=== PATIENT | male | born 1975 | race Two or more races ===

== ENCOUNTER 2018-01-31 09:19 | Emergency (ER) | payer MEDICAID ==
[~2018-01-31] VITALS: Ht 172.7 cm; Wt 68.0 kg
[2018-01-31 09:29] VITALS: BP 156/111
[2018-01-31] MEDS: KETOROLAC TROMETH 60MG/2ML VIAL IM ONE (10:52)
[2018-01-31] MEDS: diphenhdrAMINE HCL 25 MG CAP PO ONE (10:53)
[2018-01-31] MEDS: ONDANSETRON ODT 4 MG TAB PO ONE (10:53)
== END 2018-01-31 11:00 | disposition home or self-care (01) ==
LOC: ER 09:21
DX: R51 Headache (principal); F12.10 Cannabis abuse, uncomplicated
CPT/HCPCS: 96372; 99283; J1885; Q0162

== ENCOUNTER 2018-09-27 17:49 | Emergency (ER) | payer MEDICAID ==
[~2018-09-27] VITALS: Ht 172.7 cm; Wt 63.5 kg
[2018-09-27 17:54] VITALS: BP 144/116
[2018-09-27 18:20] LABS: Basophils # (auto) 0 uL; Basophils % (auto) 0.8 % (0.0-2.0); Eosinophils # (auto) 0.2 uL; Eosinophils % (auto) 3.7 % (0.0-7.0); Hematocrit 47.3 % (41.0-53.0); Hemoglobin 15.6 g/dL (13.5-17.5); Lymphocytes # (auto) 1.5 uL; Mean Corpuscular Hemoglobin 27.5 pg (28.0-32.0); Mean Corpuscular Volume 83.3 fL (80.0-100.0); Monocytes # (auto) 0.6 uL; Neutrophils % (auto) 62.5 % (37.0-80.0); Nucleated Red Blood Cells % 0.1 %; Platelet Count (auto) 319 10^3/uL (140-450); Red Blood Cells 5.68 10^6/uL (4.5-5.90); Red Cell Distribution Width 14.9 % (11.8-14.3); White Blood Cell 6.4 10^3/uL (4.4-10.8)
[2018-09-27 18:42] LABS: Albumin 3.6 g/dL (3.4-5.0); Anion Gap 6 (5-15); Blood Urea Nitrogen 20 mg/dL (7-18); Calcium 8.3 mg/dL (8.5-10.1); Carbon Dioxide 27 mmol/L (21-32); Chloride 106 mmol/L (98-107); Glucose 96 mg/dL (74-106); Sodium 139 mmol/L (136-145)
[2018-09-27 18:44] LABS: Alanine Aminotransferase 29 U/L (16-61); Alkaline Phosphatase 81 U/L (45-117); Aspartate Aminotransferase 28 U/L (15-37); BUN/Creatinine Ratio 16.3; Bilirubin, Total 0.4 mg/dL (0.2-1.0); GFR African American 82 mL/min; GFR Non-African American 68 mL/min; Total Protein 7.7 g/dL (6.4-8.2)
== END 2018-09-27 20:53 | disposition left against medical advice (07) ==
LOC: ER 17:54
DX: R07.89 Other chest pain (principal); Z88.5 Allergy status to narcotic agent; Z88.0 Allergy status to penicillin
CPT/HCPCS: 36415; 71046; 80053; 84484; 85025; 93005

== ENCOUNTER 2020-02-24 08:26 | Emergency (ER) | payer MEDICAID ==
[~2020-02-24] VITALS: Ht 175.3 cm; Wt 68.0 kg
[2020-02-24] MEDS ORDERED: cloNIDine HCL 0.1 MG TAB ONE (09:10)
[2020-02-24] MEDS ORDERED: cloNIDine HCL 0.1 MG TAB PO ONE (09:15)
[2020-02-24 10:31] VITALS: BP 144/101
== END 2020-02-24 12:21 | disposition home or self-care (01) ==
LOC: ER 08:26
DX: B34.9 Viral infection, unspecified (principal); J06.9 Acute upper respiratory infection, unspecified; I10 Essential (primary) hypertension; F17.210 Nicotine dependence, cigarettes, uncomplicated; F12.10 Cannabis abuse, uncomplicated; F15.10 Other stimulant abuse, uncomplicated; Z20.828 Contact with and (suspected) exposure to other viral communicable diseases
CPT/HCPCS: 36415; 71045; 87426

== ENCOUNTER 2020-12-08 11:55 | Emergency (ER) | payer MEDICAID ==
[~2020-12-08] VITALS: Ht 175.3 cm; Wt 72.6 kg
[2020-12-08 12:09] VITALS: BP 155/116
[2020-12-08 13:38] LABS: Basophils # (auto) 0.1 10 ^3/uL (0-0.2); Basophils % (auto) 0.9 % (0.0-2.0); Eosinophils # (auto) 0.4 10 ^3/uL (0-0.8); Eosinophils % (auto) 5.5 % (0.0-7.0); Hematocrit 43.5 % (41.0-53.0); Hemoglobin 14.7 g/dL (13.5-17.5); Lymphocytes # (auto) 2.5 10 ^3/uL (0.4-5.4); Lymphocytes % (auto) 33.4 % (10.0-50.0); Mean Corpuscular Hemoglobin 28.1 pg (28.0-32.0); Mean Corpuscular Hgb Conc. 33.9 g/dL (32.0-36.0); Mean Corpuscular Volume 82.8 fL (80.0-100.0); Monocytes # (auto) 0.5 10 ^3/uL (0-1.3); Monocytes % (auto) 6.2 % (0.0-12.0); Neutrophils # (auto) 4.1 10 ^3/uL (1.6-8.6); Red Blood Cells 5.25 10^6/uL (4.5-5.90); Red Cell Distribution Width 14.9 % (11.8-14.3); White Blood Cell 7.5 10^3/uL (4.4-10.8)
[2020-12-08 13:57] LABS: Albumin 3.9 g/dL (3.4-5.0); Anion Gap 3 (5-15); Blood Urea Nitrogen 13 mg/dL (7-18); Calcium 9.2 mg/dL (8.5-10.1); Carbon Dioxide 26 mmol/L (21-32); Chloride 107 mmol/L (98-107); Glucose 88 mg/dL (74-106); Sodium 136 mmol/L (136-145)
[2020-12-08 14:05] LABS: Alanine Aminotransferase 33 U/L (16-61); Alkaline Phosphatase 88 U/L (45-117); Aspartate Aminotransferase 21 U/L (15-37); BUN/Creatinine Ratio 12.7; Bilirubin, Total 0.5 mg/dL (0.2-1.0); GFR African American 101 mL/min; GFR Non-African American 84 mL/min; Total Protein 8.5 g/dL (6.4-8.2)
== END 2020-12-08 23:55 | disposition left against medical advice (07) ==
LOC: ER 11:55 → EDBD 11:55 → ER 16:23
DX: R07.89 Other chest pain (principal); F15.10 Other stimulant abuse, uncomplicated; F12.10 Cannabis abuse, uncomplicated; F17.210 Nicotine dependence, cigarettes, uncomplicated; Z88.0 Allergy status to penicillin; Z88.5 Allergy status to narcotic agent
CPT/HCPCS: 36415; 71046; 80053; 84484; 85025; 93005

== ENCOUNTER 2022-06-15 16:27 | Emergency (ER) | payer MEDICAID ==
[~2022-06-15] VITALS: Ht 175.3 cm; Wt 70.0 kg
[2022-06-15 16:32] VITALS: BP 162/122
[2022-06-15 18:26] LABS: Calcium 9.6 mg/dL (8.5-10.1); Magnesium 2.4 mg/dL (1.6-2.6); Potassium 4.2 mmol/L (3.5-5.1)
[2022-06-15 18:27] LABS: BUN/Creatinine Ratio 12.4
[2022-06-15 18:30] LABS: Bilirubin, Total 0.6 mg/dL (0.2-1.0); Total Protein 8.1 g/dL (6.4-8.2)
[2022-06-15 18:47] LABS: Urine Bacteria FEW /hpf (None Seen); Urine Blood Negative /uL (Negative); Urine Hyaline Cast FEW /lpf (0 - 2); Urine Mucus FEW (None Seen); Urine Specific Gravity 1.028 (1.001-1.035); Urine WBC 1 /hpf (0 - 3)
[2022-06-15 18:52] LABS: Basophils # (auto) 0 10 ^3/uL (0-0.2); Basophils % (auto) 0.3 % (0.0-2.0); Eosinophils # (auto) 0.2 10 ^3/uL (0-0.8); Eosinophils % (auto) 1.5 % (0.0-7.0); Hematocrit 46.1 % (41.0-53.0); Hemoglobin 15.4 g/dL (13.5-17.5); Lymphocytes # (auto) 2.3 10 ^3/uL (0.4-5.4); Lymphocytes % (auto) 19.9 % (10.0-50.0); Mean Corpuscular Hemoglobin 27.4 pg (28.0-32.0); Mean Corpuscular Hgb Conc. 33.4 g/dL (32.0-36.0); Mean Corpuscular Volume 82.2 fL (80.0-100.0); Monocytes # (auto) 0.7 10 ^3/uL (0-1.3); Monocytes % (auto) 6.4 % (0.0-12.0); Neutrophils # (auto) 8.1 10 ^3/uL (1.6-8.6); Neutrophils % (auto) 71.9 % (37.0-80.0); Nucleated Red Blood Cells % 0.1 %; Red Cell Distribution Width 14.5 % (11.8-14.3); White Blood Cell 11.3 10^3/uL (4.4-10.8)
[2022-06-15] MEDS ORDERED: AUG875T PO (19:21)
[2022-06-15] MEDS ORDERED: HYDROcodone-ACET 5/325MG TAB PO ONE (19:30)
== END 2022-06-15 19:51 | disposition home or self-care (01) ==
LOC: ER 16:27
DX: K04.7 Periapical abscess without sinus (principal); R07.89 Other chest pain; I10 Essential (primary) hypertension; F12.10 Cannabis abuse, uncomplicated; F15.10 Other stimulant abuse, uncomplicated; F17.210 Nicotine dependence, cigarettes, uncomplicated; Z79.899 Other long term (current) drug therapy; Z88.0 Allergy status to penicillin; Z88.6 Allergy status to analgesic agent
CPT/HCPCS: 36415; 71275; 80053; 81001; 83735; 83880; 84484; 85025; 93005

== ENCOUNTER 2023-03-02 13:50 | Emergency (ER) | payer MEDICAID ==
[~2023-03-02] VITALS: Ht 175.3 cm; Wt 65.9 kg
[~2023-03-02 13:50] MED LIST: AUG875T PO
[2023-03-02] MEDS ORDERED: levETIRAcetam 1000 mg/100ml 100 ML IV ONE (14:15)
[2023-03-02 14:20] LABS: Basophils # (auto) 0 10 ^3/uL (0-0.2); Basophils % (auto) 0.7 % (0.0-2.0); Eosinophils # (auto) 0.3 10 ^3/uL (0-0.8); Eosinophils % (auto) 4.8 % (0.0-7.0); Hematocrit 42.8 % (41.0-53.0); Hemoglobin 14.1 g/dL (13.5-17.5); Lymphocytes # (auto) 0.4 10 ^3/uL (0.4-5.4); Lymphocytes % (auto) 6.8 % (10.0-50.0); Mean Corpuscular Hemoglobin 27.4 pg (28.0-32.0); Monocytes # (auto) 0.4 10 ^3/uL (0-1.3); Monocytes % (auto) 6.2 % (0.0-12.0); Neutrophils # (auto) 5.1 10 ^3/uL (1.6-8.6); Neutrophils % (auto) 81.5 % (37.0-80.0); Nucleated Red Blood Cells % 0.1 %; Red Blood Cells 5.16 10^6/uL (4.5-5.90); White Blood Cell 6.3 10^3/uL (4.4-10.8)
[2023-03-02 14:41] LABS: Alanine Aminotransferase 32 U/L (7-40); Albumin 4.7 g/dL (3.2-4.8); Alkaline Phosphatase 92 U/L (46-116); Anion Gap 6 (5-15); Aspartate Aminotransferase 28 U/L (13-40); BUN/Creatinine Ratio 11.2 (10.0-20.0); Bilirubin, Total 0.6 mg/dL (0.2-1.0); Blood Urea Nitrogen 13 mg/dL (9-23); Calcium 9.6 mg/dL (8.7-10.4); Carbon Dioxide 27 mmol/L (20-30); Chloride 103 mmol/L (98-107); Glucose 93 mg/dL (74-106); Magnesium 1.8 mg/dL (1.6-2.6); Potassium 4.3 mmol/L (3.5-5.1); Sodium 136 mmol/L (136-145); Total Protein 7.8 g/dL (5.7-8.2)
[2023-03-02 14:49] VITALS: BP 132/87; RESP 16; TEMP 98.1; O2SAT 95
[2023-03-02 14:55] VITALS: PULSE 88
[2023-03-02] MEDS ORDERED: HYDROcodone-ACET 5/325MG TAB PO ONE (15:00)
[2023-03-02] MEDS ORDERED: SODIUM CHLORIDE 0.9% 1,000 ML IV ONE (15:15)
== END 2023-03-02 17:27 | disposition left against medical advice (07) ==
LOC: ER 13:50
DX: R07.89 Other chest pain (principal); G40.909 Epilepsy, unspecified, not intractable, without status epilepticus; R51.9 Headache, unspecified; I10 Essential (primary) hypertension; F17.210 Nicotine dependence, cigarettes, uncomplicated; Z79.2 Long term (current) use of antibiotics; Z88.0 Allergy status to penicillin; Z88.5 Allergy status to narcotic agent
CPT/HCPCS: 36415; 70450; 71045; 80053; 83605; 83735; 84484; 85025; 87040; 93005; 96374; 99285; J1953

== ENCOUNTER 2023-03-04 14:50 | Emergency (ER) | payer MEDICAID ==
[~2023-03-04] VITALS: Ht 175.3 cm; Wt 65.9 kg
[2023-03-04 14:54] VITALS: BP 132/94; RESP 18; O2SAT 100
[2023-03-04 14:56] VITALS: PULSE 87
[2023-03-04 15:27] LABS: Basophils # (auto) 0 10 ^3/uL (0-0.2); Basophils % (auto) 0.4 % (0.0-2.0); Eosinophils # (auto) 0 10 ^3/uL (0-0.8); Hematocrit 45.5 % (41.0-53.0); Hemoglobin 14.8 g/dL (13.5-17.5); Lymphocytes # (auto) 0.9 10 ^3/uL (0.4-5.4); Lymphocytes % (auto) 28.3 % (10.0-50.0); Mean Corpuscular Hemoglobin 27.1 pg (28.0-32.0); Mean Corpuscular Hgb Conc. 32.7 g/dL (32.0-36.0); Mean Corpuscular Volume 82.9 fL (80.0-100.0); Monocytes # (auto) 0.4 10 ^3/uL (0-1.3); Monocytes % (auto) 10.6 % (0.0-12.0); Neutrophils % (auto) 60.7 % (37.0-80.0); Nucleated Red Blood Cells % 0.1 %; Red Blood Cells 5.48 10^6/uL (4.5-5.90); Red Cell Distribution Width 14.4 % (11.8-14.3); White Blood Cell 3.3 10^3/uL (4.4-10.8)
[2023-03-04 15:45] LABS: Alanine Aminotransferase 27 U/L (7-40); Albumin 4.6 g/dL (3.2-4.8); Alkaline Phosphatase 90 U/L (46-116); Anion Gap 11 (5-15); Aspartate Aminotransferase 45 U/L (13-40); Blood Urea Nitrogen 14 mg/dL (9-23); Carbon Dioxide 25 mmol/L (20-30); Chloride 95 mmol/L (98-107); Glucose 101 mg/dL (74-106); Potassium 3.6 mmol/L (3.5-5.1)
[2023-03-04] MEDS ORDERED: ONDANSETRON ODT 4 MG TAB PO ONE (15:45)
[2023-03-04] MEDS ORDERED: KETOROLAC TROMETH 60MG/2ML VIAL IM ONE (15:45)
[2023-03-04 15:46] LABS: Bilirubin, Total 0.4 mg/dL (0.2-1.0); Total Protein 7.8 g/dL (5.7-8.2)
[2023-03-04 15:49] LABS: Sodium 131 mmol/L (136-145)
[2023-03-04 17:44] LABS: Urine Bacteria NONE SEEN /hpf (None Seen); Urine Blood Negative /uL (Negative); Urine Clarity Clear (Clear); Urine Color Colorless (Yellow); Urine Protein, UAD Negative (Negative); Urine Specific Gravity 1.012 (1.001-1.035); Urine Urobilinogen Normal (Negative); Urine WBC <1 /hpf (0 - 3); Urine pH 5.5 (5.0-8.0)
[2023-03-04] MEDS ORDERED: ACET500T58 PO (19:11)
[2023-03-04] MEDS ORDERED: IBUP-1455 PO (19:11)
== END 2023-03-04 20:54 | disposition home or self-care (01) ==
LOC: ER 14:50
DX: R07.89 Other chest pain (principal); R51.9 Headache, unspecified; I10 Essential (primary) hypertension; F17.210 Nicotine dependence, cigarettes, uncomplicated; Z79.2 Long term (current) use of antibiotics; Z88.0 Allergy status to penicillin; Z88.5 Allergy status to narcotic agent
CPT/HCPCS: 36415; 70450; 71046; 80053; 80320; 81001; 84484; 85025; 93005

== ENCOUNTER 2023-11-14 15:07 | Emergency (ER) | payer MEDICAID ==
[~2023-11-14] VITALS: Ht 175.3 cm; Wt 63.6 kg
[~2023-11-14 15:07] MED LIST changes: +ACET500T58 PO; +IBUP-1455 PO
[2023-11-14 16:02] LABS: Basophils # (auto) 0.1 10 ^3/uL (0-0.2); Basophils % (auto) 0.7 % (0.0-2.0); Eosinophils # (auto) 0.4 10 ^3/uL (0-0.8); Eosinophils % (auto) 4.6 % (0.0-7.0); Hematocrit 42.6 % (41.0-53.0); Hemoglobin 14.1 g/dL (13.5-17.5); Lymphocytes # (auto) 2.5 10 ^3/uL (0.4-5.4); Lymphocytes % (auto) 30.6 % (10.0-50.0); Mean Corpuscular Hemoglobin 27.3 pg (28.0-32.0); Mean Corpuscular Hgb Conc. 33.2 g/dL (32.0-36.0); Mean Corpuscular Volume 82.2 fL (80.0-100.0); Monocytes # (auto) 0.6 10 ^3/uL (0-1.3); Monocytes % (auto) 7.4 % (0.0-12.0); Neutrophils # (auto) 4.6 10 ^3/uL (1.6-8.6); Neutrophils % (auto) 56.7 % (37.0-80.0); Nucleated Red Blood Cells % 0.1 %; Red Blood Cells 5.18 10^6/uL (4.5-5.90); Red Cell Distribution Width 15.1 % (11.8-14.3); White Blood Cell 8.1 10^3/uL (4.4-10.8)
[2023-11-14] MEDS: ACETAMINOPHEN 500 MG TAB PO ONE (16:15)
[2023-11-14 16:28] LABS: Alanine Aminotransferase 16 U/L (7-40); Albumin 4.6 g/dL (3.2-4.8); Alkaline Phosphatase 87 U/L (46-116); Anion Gap 6 (5-15); Aspartate Aminotransferase 14 U/L (13-40); BUN/Creatinine Ratio 14.2 (10.0-20.0); Blood Urea Nitrogen 17 mg/dL (9-23); Calcium 10.2 mg/dL (8.7-10.4); Carbon Dioxide 27 mmol/L (20-30); Chloride 106 mmol/L (98-107); Glucose 98 mg/dL (74-106); Magnesium 2.1 mg/dL (1.6-2.6); Potassium 4.1 mmol/L (3.5-5.1); Sodium 139 mmol/L (136-145)
[2023-11-14 16:29] LABS: Bilirubin, Total 0.5 mg/dL (0.2-1.0); Partial Thromboplastin Time 28.6 SEC (24.5-34.5); Prothrombin Time 10.6 sec (9.3-11.8); Total Protein 7.3 g/dL (5.7-8.2)
[2023-11-14] MEDS ORDERED: LEVE500T40 PO (18:33)
[2023-11-14] MEDS ORDERED: IBUP1TAB5 PO (18:33)
[2023-11-14] MEDS ORDERED: LISI-275 PO (18:33)
[2023-11-14 19:20] VITALS: BP 148/114; TEMP 98
[2023-11-14 19:26] VITALS: PULSE 85; RESP 16; O2SAT 98
[2023-11-14] MEDS: KETOROLAC TROMETH 30 MG/ML 1ML VIAL IM ONE (19:30)
== END 2023-11-14 19:43 | disposition home or self-care (01) ==
LOC: ER 15:12
DX: I16.0 Hypertensive urgency (principal); R07.89 Other chest pain; R51.9 Headache, unspecified; F17.210 Nicotine dependence, cigarettes, uncomplicated; F12.10 Cannabis abuse, uncomplicated; F15.10 Other stimulant abuse, uncomplicated; Z88.0 Allergy status to penicillin; Z88.5 Allergy status to narcotic agent
CPT/HCPCS: 36415; 70450; 71045; 80053; 83735; 83880; 84484; 85025; 85610; 85730; 93005

== ENCOUNTER 2023-12-12 18:14 | Emergency (ER) | payer MEDICAID ==
[~2023-12-12] VITALS: Ht 175.3 cm; Wt 72.7 kg
[~2023-12-12 18:14] MED LIST changes: +IBUP1TAB5 PO; +LEVE500T40 PO; +LISI-275 PO
[2023-12-12 18:59] LABS: Basophils # (auto) 0.1 10 ^3/uL (0-0.2); Basophils % (auto) 0.9 % (0.0-2.0); Eosinophils # (auto) 0.5 10 ^3/uL (0-0.8); Eosinophils % (auto) 6.6 % (0.0-7.0); Hematocrit 40.2 % (41.0-53.0); Hemoglobin 13.2 g/dL (13.5-17.5); Lymphocytes # (auto) 3.4 10 ^3/uL (0.4-5.4); Lymphocytes % (auto) 44.6 % (10.0-50.0); Mean Corpuscular Hemoglobin 27.2 pg (28.0-32.0); Mean Corpuscular Hgb Conc. 32.8 g/dL (32.0-36.0); Mean Corpuscular Volume 82.9 fL (80.0-100.0); Monocytes # (auto) 0.5 10 ^3/uL (0-1.3); Monocytes % (auto) 6.9 % (0.0-12.0); Neutrophils # (auto) 3.1 10 ^3/uL (1.6-8.6); Red Blood Cells 4.85 10^6/uL (4.5-5.90); Red Cell Distribution Width 14.6 % (11.8-14.3); White Blood Cell 7.6 10^3/uL (4.4-10.8)
[2023-12-12 19:15] LABS: Chloride 108 mmol/L (98-107); Potassium 3.6 mmol/L (3.5-5.1); Sodium 140 mmol/L (136-145)
[2023-12-12 19:16] LABS: Anion Gap 5 (5-15); Calcium 9.1 mg/dL (8.7-10.4); Carbon Dioxide 27 mmol/L (20-30)
[2023-12-12 19:21] LABS: BUN/Creatinine Ratio 12.6 (10.0-20.0); Blood Urea Nitrogen 13 mg/dL (9-23); Glucose 83 mg/dL (74-106)
[2023-12-12 19:22] LABS: Blood Alcohol 3.1 mg/dL (<10)
[2023-12-12 19:47] VITALS: TEMP 99.6
[2023-12-12] MEDS: ACETAMINOPHEN 325 MG TAB PO ONE (19:47)
[2023-12-12] MEDS: levETIRAcetam 1000 mg/100ml 100 ML IV ONE (19:47)
[2023-12-12 21:15] VITALS: BP 136/99; PULSE 75; RESP 16; O2SAT 99
== END 2023-12-12 21:18 | disposition home or self-care (01) ==
LOC: EDBD 18:14 → ER 18:14
DX: G40.909 Epilepsy, unspecified, not intractable, without status epilepticus (principal); I10 Essential (primary) hypertension; F17.210 Nicotine dependence, cigarettes, uncomplicated; F12.10 Cannabis abuse, uncomplicated; F15.10 Other stimulant abuse, uncomplicated; Z88.0 Allergy status to penicillin; Z88.6 Allergy status to analgesic agent
CPT/HCPCS: 36415; 70450; 80048; 80320; 85025; 93005; 96365; 99285; J1953

== ENCOUNTER 2024-02-06 13:29 | Inpatient (IN) | payer MEDICAID ==
[~2024-02-06] VITALS: Ht 175.3 cm; Wt 65.0 kg
[2024-02-06 14:33] LABS: Basophils # (auto) 0.1 10 ^3/uL (0-0.2); Basophils % (auto) 0.7 % (0.0-2.0); Eosinophils # (auto) 0.2 10 ^3/uL (0-0.8); Eosinophils % (auto) 2.5 % (0.0-7.0); Hematocrit 42.5 % (41.0-53.0); Hemoglobin 14.1 g/dL (13.5-17.5); Lymphocytes # (auto) 2.9 10 ^3/uL (0.4-5.4); Lymphocytes % (auto) 33.5 % (10.0-50.0); Mean Corpuscular Hemoglobin 27.8 pg (28.0-32.0); Mean Corpuscular Hgb Conc. 33.1 g/dL (32.0-36.0); Mean Corpuscular Volume 84.1 fL (80.0-100.0); Monocytes # (auto) 0.5 10 ^3/uL (0-1.3); Monocytes % (auto) 5.7 % (0.0-12.0); Neutrophils # (auto) 5.1 10 ^3/uL (1.6-8.6); Neutrophils % (auto) 57.6 % (37.0-80.0); Platelet Count (auto) 408 10^3/uL (140-450); Red Blood Cells 5.06 10^6/uL (4.5-5.90); Red Cell Distribution Width 15.2 % (11.8-14.3); White Blood Cell 8.8 10^3/uL (4.4-10.8)
[2024-02-06 14:53] LABS: Alanine Aminotransferase 21 U/L (7-40); Albumin 4.4 g/dL (3.2-4.8); Alkaline Phosphatase 86 U/L (46-116); Anion Gap 9 (5-15); Aspartate Aminotransferase 17 U/L (13-40); BUN/Creatinine Ratio 11.2 (10.0-20.0); Blood Urea Nitrogen 13 mg/dL (9-23); Calcium 9.7 mg/dL (8.7-10.4); Carbon Dioxide 26 mmol/L (20-31); Chloride 107 mmol/L (98-107); Glucose 94 mg/dL (74-106); Lipase 38 U/L (12-53); Potassium 4.3 mmol/L (3.5-5.1); Sodium 142 mmol/L (136-145)
[2024-02-06 14:54] LABS: Bilirubin, Total 0.3 mg/dL (0.2-1.0); Total Protein 7.2 g/dL (5.7-8.2)
[2024-02-06 15:55] VITALS: PULSE 78; RESP 18; O2SAT 98
[2024-02-06] MEDS: PANTOPRAZOLE 40 MG/10 ML VIAL INJ IV ONE (16:18)
[2024-02-06] MEDS: ONDANSETRON HCL 4 MG/2 ML VIAL IV ONE (16:19)
[2024-02-06] MEDS: hydrALAZINE HCL 20 MG/ML VL IV ONE (16:19)
[2024-02-06 17:11] VITALS: TEMP 98.4
[2024-02-06] MEDS ORDERED: ONDANSETRON HCL 4 MG/2 ML VIAL IV PRN (17:15)
[2024-02-06] MEDS ORDERED: HYDROmorphone HCL 2 MG/ML VL/or syr IV PRN (17:15)
[2024-02-06] MEDS: SODIUM CHLORIDE 0.9% 1,000 ML IV SCH (17:41)
[2024-02-06 17:55] VITALS: BP 155/109; PULSE 81; RESP 16; O2SAT 100
[2024-02-06] MEDS ORDERED: hydrALAZINE HCL 20 MG/ML VL IV PRN (18:45)
[2024-02-06] MEDS: LISINOPRIL 5 MG TAB PO SCH (19:16)
[2024-02-06] MEDS: cefTRIAXone 1GM/50ML D5W 50 ML IV SCH (19:16)
[2024-02-06] MEDS: levETIRAcetam 500 MG TAB PO ONE (19:20)
[2024-02-06 19:55] LABS: Urine Bacteria None Seen /hpf (None Seen)
[2024-02-06 20:07] LABS: Urine Blood Negative /uL (Negative); Urine Clarity Clear (Clear); Urine Color Light-Yellow (Yellow); Urine Protein, UAD Negative (Negative); Urine Specific Gravity 1.015 (1.001-1.035); Urine Urobilinogen Normal (Negative); Urine WBC <1 /hpf (0 - 3)
[2024-02-06] MEDS ORDERED: levETIRAcetam 500 MG TAB PO SCH (22:00)
[2024-02-06] MEDS: metroNIDAZOLE 500MG/100ML 100 ML IV SCH (22:00)
[2024-02-06] MEDS: SUCRALFATE 1 GM/10 ML ORAL SUSP GT SCH (22:00)
[2024-02-07] MEDS ORDERED: levETIRAcetam 500 MG TAB PO SCH (10:00)
[2024-02-07] MEDS ORDERED: LISINOPRIL 5 MG TAB PO SCH (10:00)
[2024-02-07] MEDS ORDERED: PANTOPRAZOLE 40 MG/10 ML VIAL INJ IV SCH (10:00)
== END 2024-02-06 23:02 | disposition left against medical advice (07) | DRG 254 ==
LOC: ER 13:29 → OVERFLOW 17:10
PROVIDERS: ADMIT Registered Nurse General Practice; ATTEND Registered Nurse General Practice
DX: K37 Unspecified appendicitis (principal); F17.210 Nicotine dependence, cigarettes, uncomplicated; F32.A Depression, unspecified; K52.9 Noninfective gastroenteritis and colitis, unspecified; I10 Essential (primary) hypertension; F41.9 Anxiety disorder, unspecified; Z53.29 Procedure and treatment not carried out because of patient's decision for other reasons; Z88.5 Allergy status to narcotic agent; Z88.0 Allergy status to penicillin
CPT/HCPCS: 36415; 71250; 74176; 76705; 80053; 81001; 83690; 85025; G0378; J2405; J2470

== ENCOUNTER 2024-04-09 15:39 | Emergency (ER) | payer MEDICAID ==
[~2024-04-09] VITALS: Ht 175.3 cm; Wt 146.8 kg
--- NOTE | 2024-04-09 16:03 | ED.PDOC ---
HPI Comments HPI: Poor Historian. 48 y/o M c/o left-sided chest discomfort that radiates towards his left armpit, blurry vision, headache, nausea, and generalized tremors, and HTN. Patient states that when he feels that way it she has. That his blood pressure is elevated. Patient took all his blood pressure medication this morning. He does not know the names of his two blood pressure medications he takes daily. Initial Vitals: Temp: 97.9F RR: 19 SpO2: 98% HR: 102 BP: 162/116 PMHx: HTN, seizures, tobacco abuse PSHx: denies Patient smokes marijuana and tobacco REVIEW OF SYSTEMS: CONSTITUTIONAL: Denies acute: fever, diaphoresis, chills, generalized weakness. HEAD: Denies acute: photophobia Eyes: Denies acute: Double vision, vision loss, eye pain, eye discharge. EARS: Denies acute: tinnitus, hearing loss, ear discharge, ear pain, THROAT: Denies acute: sore throat, swelling, difficulty swallowing , pain with swallowing, change in voice. NECK: Denies acute: neck pain, neck swelling, stiff neck. HEART: Denies acute : , palpitations, LUNGS: Denies acute: SOB, wheezing, cough, hemoptysis ABDOMEN: Denies acute: abdominal pain, Vomiting, diarrhea, melena , hematemesis, hematochezia SKIN: Denies acute: rash, redness, lesions, itchiness. EXTREMITIES: Denies acute: calf pain, numbness, tingling, weakness, denies pain in extremity. Denies acute: Low back pain. Neuro: Denies acute: focal neurological deficit, motor or sensory focal neurological deficit, seizure like activity, confusion, dizziness, change in mental status, loss of bowel or bladder function, cauda equina like symptoms. : Denies acute: dysuria, hematuria, flank pain, increase in urinary frequency. PSYCH: Denies acute: hallucination, suicidal ideation, homicidal ideation. PHYSICAL EXAM: General: no acute distress, awake and alert. Head: normocephalic, atraumatic. Neck: supple, trachea is midline, no swelling. Throat: Normal phonation. Eyes:, no erythema, no purulent discharge, no proptosis, no icterus. Heart: regular rate, regular rhythm, no significant murmur appreciated. Lungs: no apparent respiratory distress, Able to speak in full sentences. No wheezing, no rhonchi, no crackles. No stridors Clear to auscultation bilaterally. Abdomen: non tender to palpation, non distended, soft, no guarding, no rebound, + bowel sounds. Neuro: Awake, Alert, oriented to name, self, situation, follows commands GCS=15. Speech is normal. Skin: no petechia, no purpura, no cyanosis, non-pale, not jaundice. Lower extremities: --no - Pitting edema no deformity, no focal swelling, no calf TTP. Makes eye contact. moves all four extremities. Face: no apparent facial droop. Ambulating in the ED independently. Chief Complaint: High Blood Pressure Time Seen by MD: 15:50 Primary Care Provider: NONE Reviewed Notes: Nurses Notes, Medications, Allergies Allergies: Coded Allergies: Morphine (Verified Allergy, Unknown, 01/31/18) Penicillins (Verified Allergy, Unknown, 01/31/18) Uncoded Allergies: PENICILLIN (Allergy, Unknown, 01/31/18) Home Meds Active Scripts Levetiracetam (Keppra) 500 Mg Tab, 1 TAB PO BID, #60 TAB 0 Refills Prov:DOROTHY VALIENTE 11/16/23 Lisinopril (Lisinopril) 5 Mg Tab, 5 MG PO DAILY, #30 TAB Prov:DOROTHY VALIENTE 11/16/23 Ibuprofen Micronized (Ibuprofen) 600 Mg Tab, 600 MG PO Q6HPRN PRN, #20 TAB Prov:DOROTHY VALIENTE 11/16/23 Acetaminophen (Acetaminophen) 500 Mg Tab, 500 MG PO Q4HP PRN, #30 TAB Prov:DULCE MOORE PAC 03/04/23 Ibuprofen Micronized (Ibuprofen) 800 Mg Tab, 800 MG PO Q8HP PRN, #20 TAB Prov:DULCE MOORE PAC 03/04/23 Amoxicillin & Pot Clavulanate (AUGMENTIN TABLET) 875 Mg Tb, 875 MG PO BID for 10 Days, #20 TAB Prov:GUS DANIELLE MD 06/15/22 Information Source: Patient Mode of Arrival: Ambulatory Was a procedure done? Was a procedure done?: No X-Ray, Labs, Meds, VS Vital Signs Date Time Temp Pulse Resp B/P (MAP) Pulse Ox O2 Delivery O2 Flow Rate FiO2 04/09/24 16:24 98.1 89 18 153/120 (131) 98 98.1 04/09/24 16:24 89 18 98 Room Air* 0 21 04/09/24 16:22 153/120 04/09/24 15:57 98 04/09/24 15:52 97.9 102 19 162/116 (131) 98 Lab Test 04/09/24 17:54 04/09/24 16:39 Range/Units Troponin I High Sensitivity 3 L 3 L </=54 ng/L White Blood Count 8.7 4.4-10.8 10^3/uL Red Blood Count 5.66 4.5-5.90 10^6/uL Hemoglobin 15.7 13.5-17.5 g/dL Hematocrit 46.8 41.0-53.0 % Mean Corpuscular Volume 82.8 80.0-100.0 fL Mean Corpuscular Hemoglobin 27.7 L 28.0-32.0 pg Mean Corpuscular Hemoglobin Concent 33.5 32.0-36.0 g/dL Red Cell Distribution Width 14.8 H 11.8-14.3 % Platelet Count 490 H 140-450 10^3/uL Mean Platelet Volume 7.9 6.9-10.8 fL Neutrophils (%) (Auto) 65.4 37.0-80.0 % Lymphocytes (%) (Auto) 25.5 10.0-50.0 % Monocytes (%) (Auto) 5.6 0.0-12.0 % Eosinophils (%) (Auto) 2.8 0.0-7.0 % Basophils (%) (Auto) 0.7 0.0-2.0 % Neutrophils # (Auto) 5.7 1.6-8.6 10 ^3/uL Lymphocytes # (Auto) 2.2 0.4-5.4 10 ^3/uL Monocytes # (Auto) 0.5 0-1.3 10 ^3/uL Eosinophils # (Auto) 0.2 0-0.8 10 ^3/uL Basophils # (Auto) 0.1 0-0.2 10 ^3/uL Nucleated Red Blood Cells 0.0 % Sodium Level 137 136-145 mmol/L Potassium Level 4.3 3.5-5.1 mmol/L Chloride Level 100 98-107 mmol/L Carbon Dioxide Level 30 20-31 mmol/L Anion Gap 7 5-15 Blood Urea Nitrogen 10 9-23 mg/dL Creatinine 1.19 0.700-1.30 mg/dL Glomerular Filtration Rate Calc 75 >90 mL/min BUN/Creatinine Ratio 8.4 L 10.0-20.0 Serum Glucose 92 74-106 mg/dL Lactic Acid Level 1.4 0.4-2.0 mmol/L Calcium Level 10.9 H 8.7-10.4 mg/dL Total Bilirubin 0.7 0.2-1.0 mg/dL Aspartate Amino Transferase (AST) 32 13-40 U/L Alanine Aminotransferase (ALT) 44 H 7-40 U/L Alkaline Phosphatase 108 46-116 U/L Total Protein 8.8 H 5.7-8.2 g/dL Albumin 5.2 H 3.2-4.8 g/dL [place] [address] Ph: [phone] DIAGNOSTIC IMAGING Diagnostic Imaging Report : [id number] Signed PATIENT: NORA NEWBY ACCT: [id number] UNIT: [id number] : 1975 LOC: ER ROOM / BED: / AGE / SEX: 48 / M ADM STATUS: REG ER SERVICE [id number] ORDERING PHYSICIAN: MARTHA GARDUNO DO PROCEDURE(s): CXRP - CHEST PORTABLE REASON: HTN, CP, PATEL ORDER NUMBER(s): [id number], ACCESSION NUMBER(s): [id number] CHEST RADIOGRAPH Indication: HTN, CP, PATEL Technique: Single frontal view of the chest was obtained Comparison: XY CHEST PORTABLE on DOS: 11/14/23, XY CHEST PORTABLE on DOS: 03/02/23, CHEST PORTABLE on DOS: 02/24/20 FINDINGS: Lines and Tubes: None Lungs: No focal consolidation. Pleura: No effusion. No pneumothorax. Cardiomediastinal contours: Unremarkable Bones: No acute osseous abnormality. IMPRESSION: No acute cardiopulmonary disease. ATED BY: CHARO MOCK DO DICTATED DATE/TIME: 04/09/24 1627 SIGNED BY: CHARO MOCK DO SIGNED DATE/TIME: 04/09/24 1627 [facility] [address] [facility] [address] Ph: [phone] DIAGNOSTIC IMAGING Diagnostic Imaging Report : [id number] Signed PATIENT: NORA NEWBY ACCT: [id number] UNIT: [id number] : 1975 LOC: ER ROOM / BED: / AGE / SEX: 48 / M ADM STATUS: REG ER SERVICE [id number] ORDERING PHYSICIAN: MARTHA GARDUNO DO PROCEDURE(s): HWOCT - HEAD WITHOUT CONTRAST REASON: HTN, CP, PATEL ORDER NUMBER(s): [id number], ACCESSION NUMBER(s): [id number] EXAM: CT HEAD WITHOUT CONTRAST INDICATION: HTN, CP, PATEL TECHNIQUE: CT of the head without intravenous contrast. Radiation Dose Information: CT Dose: CTDI volume is 55.33 mGy. Dose-length product is 1090.38 mGy*cm The dose indicators for CT are the volume Computed Tomography (CT) Dose Index (CTDIvol) and the Dose Length Product (DLP), and are measured in units of mGy and mGy-cm, respectively. These indicators are not patient dose, but values generated from the CT scanner acquisition factors. The report includes radiation exposure data for exposures received during this examination. COMPARISON: CT CHEST WITHOUT CONTRAST on DOS: 02/06/24, CT HEAD WITHOUT CONTRAST on DOS: 12/12/23 FINDINGS: There is no evidence of acute intracranial hemorrhage, extra-axial collection, mass effect, midline shift, herniation or hydrocephalus. The ventricles, sulci and cisterns are age appropriate. The aguilar-white differentiation is intact. Bilateral ethmoid air cell mucoperiosteal thickening. Otherwise, the visualized paranasal sinuses and mastoid air cells are clear. The surrounding soft tissues and osseous structures are unremarkable. IMPRESSION: 1. No CT evidence of acute intracranial abnormality. HS:Y ATED BY: GERRI BOYLE DO DICTATED DATE/TIME: 04/09/241631 SIGNED BY: GERRI BOYLE DO SIGNED DATE/TIME: 04/09/241631 Time of 1ST Reevaluation: 16:20 Reevaluation 1ST: Unchanged Patient Education/Counseling: Diagnosis, Treatment Family Education/Counseling: No Family Present Departure 1 Departure Time of Disposition: 00:14 Impression: Primary Impression: Hypertensive urgency Additional Impressions: Chest pain Eloped from emergency department Disposition: 07 LEFT AWOL/ELOPED Condition: Guarded Discharged With: Self Critical Care Note Critical Care Time?: Yes (35 min-critical care time only) Heart Score Heart Score: Heart Score Response (Comments) Value Age 45-64 1 Risk Factors 1 or 2 risk factors 1 Troponin Normal limit 0 Total 2 I personally scribed for MARTHA GARDUNO DO ([email or web address]) on 04/09/24 at 16:03. Electronically submitted by Bob Wade ([email or web address]). I personally scribed for MARTHA GARDUNO DO ([email or web address]) on 04/09/24 at 19:08. Electronically submitted by Wil Oates ([email or web address]). I personally scribed for MARTHA GARDUNO DO ([email or web address]) on 04/09/24 at 19:51. Electronically submitted by Wil Oates ([email or web address]). MARTHA GARDUNO DO Apr 09, 2024 16:03
[2024-04-09] MEDS: NITROGLYCERIN 0.4 MG SL TAB SL ONE (16:22)
[2024-04-09 16:24] VITALS: BP 153/120; PULSE 89; RESP 18; TEMP 98.1; O2SAT 98
--- NOTE | 2024-04-09 16:29 | DVH ---
CHEST RADIOGRAPH Indication: HTN, CP, PATEL Technique: Single frontal view of the chest was obtained Comparison: XY CHEST PORTABLE on DOS: 11/14/23, XY CHEST PORTABLE on DOS: 03/02/23, CHEST PORTABLE on D OS: 02/24/20 FINDINGS: Lines and Tubes: None Lungs: No focal consolidation. Pleura: No effusion. No pneumothorax. Cardiomediastinal contours: Unremarkable Bones: No acute osseous abnormality. IMPRESSION: No acute cardiopulmonary disease.
--- NOTE | 2024-04-09 16:34 | DVH ---
EXAM: CT HEAD WITHOUT CONTRAST INDICATION: HTN, CP, PATEL TECHNIQUE: CT of the head without intravenous contrast. Radiation Dose Information: CT Dose: CTDI volume is 55.33 mGy. Dose-length product is 1090.38 mGy*cm The dose indicators for CT are the volume Computed Tomography (CT) Dose Index (CTDIvol) and the Dose Length Product (DLP), and are measured in units of mGy and mGy-cm, respectively. These indicators are not patient dose, but values generated from the CT scanner acquisition factors. The report includes radiation exposure data for exposures received during this examination. COMPARISON: CT CHEST WITHOUT CONTRAST on DOS: 02/06/24, CT HEAD WITHOUT CONTRAST on DOS: 12/12/23 FINDINGS: There is no evidence of acute intracranial hemorrhage, extra-axial collection, mass effect, midline s hift, herniation or hydrocephalus. The ventricles, sulci and cisterns are age appropriate. The aguilar-white differentiation is intact. Bilateral ethmoid air cell mucoperiosteal thickening. Otherwise, the visualized paranasal sinuses an d mastoid air cells are clear. The surrounding soft tissues and osseous structures are unremarkable. IMPRESSION: 1. No CT evidence of acute intracranial abnormality. HS:Y
[2024-04-09 17:08] LABS: Basophils # (auto) 0.1 10 ^3/uL (0-0.2); Basophils % (auto) 0.7 % (0.0-2.0); Eosinophils # (auto) 0.2 10 ^3/uL (0-0.8); Eosinophils % (auto) 2.8 % (0.0-7.0); Hematocrit 46.8 % (41.0-53.0); Hemoglobin 15.7 g/dL (13.5-17.5); Lymphocytes # (auto) 2.2 10 ^3/uL (0.4-5.4); Lymphocytes % (auto) 25.5 % (10.0-50.0); Mean Corpuscular Hemoglobin 27.7 pg (28.0-32.0); Mean Corpuscular Hgb Conc. 33.5 g/dL (32.0-36.0); Mean Corpuscular Volume 82.8 fL (80.0-100.0); Monocytes # (auto) 0.5 10 ^3/uL (0-1.3); Monocytes % (auto) 5.6 % (0.0-12.0); Neutrophils # (auto) 5.7 10 ^3/uL (1.6-8.6); Neutrophils % (auto) 65.4 % (37.0-80.0); Platelet Count (auto) 490 10^3/uL (140-450); Red Blood Cells 5.66 10^6/uL (4.5-5.90); Red Cell Distribution Width 14.8 % (11.8-14.3); White Blood Cell 8.7 10^3/uL (4.4-10.8)
[2024-04-09 17:28] LABS: Alkaline Phosphatase 108 U/L (46-116); Anion Gap 7 (5-15); Aspartate Aminotransferase 32 U/L (13-40); BUN/Creatinine Ratio 8.4 (10.0-20.0); Bilirubin, Total 0.7 mg/dL (0.2-1.0); Blood Urea Nitrogen 10 mg/dL (9-23); Carbon Dioxide 30 mmol/L (20-31); Chloride 100 mmol/L (98-107); Glucose 92 mg/dL (74-106); Potassium 4.3 mmol/L (3.5-5.1); Sodium 137 mmol/L (136-145)
[2024-04-09 17:36] LABS: Alanine Aminotransferase 44 U/L (7-40); Albumin 5.2 g/dL (3.2-4.8); Calcium 10.9 mg/dL (8.7-10.4); Total Protein 8.8 g/dL (5.7-8.2)
[2024-04-09] MEDS ORDERED: ASPirin 325 MG TAB PO ONE (18:30)
== END 2024-04-10 00:13 | disposition left against medical advice (07) ==
LOC: ER 15:39
DX: I16.0 Hypertensive urgency (principal); I10 Essential (primary) hypertension; R07.89 Other chest pain; R51.9 Headache, unspecified; H53.8 Other visual disturbances; Z79.899 Other long term (current) drug therapy; Z88.0 Allergy status to penicillin; Z88.5 Allergy status to narcotic agent
CPT/HCPCS: 36415; 70450; 71045; 80053; 83605; 84484; 85025

== ENCOUNTER 2024-05-02 11:29 | Emergency (ER) | payer MEDICAID ==
[~2024-05-02] VITALS: Ht 172.7 cm; Wt 72.7 kg
--- NOTE | 2024-05-02 12:51 | DVH ---
Exam: CT CT AB PEL WO CON-NO ORAL OR IV History: RLQ pain/mass Comparison Study: CT abdomen pelvis 02/06/2024 TECHNIQUE: Multidetector CT of the abdomen was performed from lung bases to pubic symphysis. Imaging was performed without IV contrast. Axial, coronal and sagittal multiplanar reformats were obtained fr om the axial data set by the technologist. Radiation Dose Information: CT Dose: CTDI volume is 5.17 mGy. Dose-length product is 249.16 mGy*cm FINDINGS: Evaluation of solid organs is limited due to lack of intravenous contrast use. Findings: Lung Bases: No acute or significant lung base finding. Normal heart size. No pleural or pericardial effusion. Liver: The liver is normal in size. No focal lesions. Gallbladder and Biliary Tree: Unremarkable Spleen: Unremarkable Pancreas: The pancreas is grossly normal in appearance. Adrenal Glands: Unremarkable Kidneys: Kidneys are grossly normal without calculi or hydronephrosis. Bladder: Grossly unremarkable for degree of distention. Bowel: Small hiatal hernia.. Small bowel and colon are normal in caliber and distribution. There are tiny hyperdense foci near the appendiceal origin, however no appendiceal dilation or periappendiceal inflammatory reaction is appreciated. Ascites: Absent Lymphadenopathy: No mesenteric, retroperitoneal or periportal lymphadenopathy. Abdominal Wall and Mesentery: There is a 2.2 cm region mesenteric fat stranding just inferior to the right kidney. Vasculature: The visualized abdominal aorta is normal in size and caliber. Evaluation of abdominal a nd pelvic vessels is limited due to lack of intravenous contrast. Pelvic Organs: Unremarkable Musculoskeletal: No aggressive focal bony lesions, acute fractures or dislocation. Moderate to severe narrowing of the L5-S1 disc space with focal degenerative changes at this level. Soft tissues: Unremarkable IMPRESSION: 1. Right lower quadrant 2.2 cm region of mesenteric fat stranding inferior to the right kidney. 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 2. Tiny hyperdense foci at the appendiceal origin, however no CT evidence for acute appendicitis. 3. Small hiatal hernia. 4. Moderate to severe narrowing of the L5-S1 disc space with focal degenerative changes at this level . Radiation optimization: All CT scans at this facility use at least one of these dose optimization te chniques: automated exposure control mA and/or kV adjustment per patient size (includes targeted exa ms where dose is matched to clinical indication) or iterative reconstruction. HS:Y
[2024-05-02] MEDS: ONDANSETRON HCL 4 MG/2 ML VIAL IV ONE (13:14)
[2024-05-02] MEDS: FAMOTIDINE (10MG/ML) 2ML VL IV ONE (13:14)
[2024-05-02] MEDS: HYDROmorphone HCL 2 MG/ML VL/or syr IV ONE ×2 (13:15→16:11)
[2024-05-02] MEDS: SODIUM CHLORIDE 0.9% 2,000 ML IV ONE (13:16)
--- NOTE | 2024-05-02 13:25 | ED.PDOC ---
GI ASSESSMENT HPI Comments 48 Y M with PMHX of HTN and seizures presents to the ED with CC of abdominal pain. Patient states he has been experiencing sharp right lower quadrant pain since 05/01/24 with associated symptoms of nausea, vomiting, diarrhea, chills, body aches and sweats. Patient states he was last seen at [facility] in March of 2024 with a finding of a mass in the right lower quadrant on ultrasound, however it was never addressed due to his elopement from ER. Patient denies dysuria, chest pain, shortness breath or recent sick contacts. Chief Complaint: Abdominal Pain Time Seen by MD: 11:30 Primary Care Provider: NONE Reviewed Notes: Nurses Notes, Medications, Allergies Allergies: Coded Allergies: Morphine (Verified Allergy, Unknown, 01/31/18) Penicillins (Verified Allergy, Unknown, 01/31/18) Uncoded Allergies: PENICILLIN (Allergy, Unknown, 01/31/18) Home Meds Active Scripts Levetiracetam (Keppra) 500 Mg Tab, 1 TAB PO BID, #60 TAB 0 Refills Prov:DOROTHY VALIENTE 11/16/23 Lisinopril (Lisinopril) 5 Mg Tab, 5 MG PO DAILY, #30 TAB Prov:DOROTHY VALIENTE 11/16/23 Ibuprofen Micronized (Ibuprofen) 600 Mg Tab, 600 MG PO Q6HPRN PRN, #20 TAB Prov:DOROTHY VALIENTE 11/16/23 Acetaminophen (Acetaminophen) 500 Mg Tab, 500 MG PO Q4HP PRN, #30 TAB Prov:DULCE MOORE PAC 03/04/23 Ibuprofen Micronized (Ibuprofen) 800 Mg Tab, 800 MG PO Q8HP PRN, #20 TAB Prov:DULCE MOORE PAC 03/04/23 Amoxicillin & Pot Clavulanate (AUGMENTIN TABLET) 875 Mg Tb, 875 MG PO BID for 10 Days, #20 TAB Prov:GUS DANIELLE MD 06/15/22 Information Source: Patient Mode of Arrival: EMS Duration: Since onset Prehospital treatment: None Quality: None Vomitus: Watery Stool: Watery Severity: Moderate Recent: None Recent Hx of: None Pain Location: RLQ Modifying Factors: Nothing Associated sign and symptoms: Nausea, Vomiting, Diarrhea Past Medical History PAST MEDICAL HISTORY: HTN, Seizures Surgical History: Denies all surgeries Family History Family History: Reviewed,noncontributory to illness, Family hx of heart starla Social History Smoker: Cigarettes, Less Than 1 Pack/Day Alcohol: Denies ETOH Use Drugs: Marijuana, Methamphetamine Lives In: Home Constitutional: reports: chills; denies: diaphoresis, fatigue, fever, malaise, sweats, weakness, others EENTM: denies: blurred vision, double vision, ear bleeding, ear discharge, ear drainage, ear pain, ear ringing, eye pain, eye redness, hearing loss, mouth pain, mouth swelling, nasal discharge, nose bleeding, nose congestion, nose pain, photophobia, tearing, throat pain, throat swelling, voice changes, others Respiratory: denies: cough, hemoptysis, orthopnea, SOB at rest, shortness of breath, SOB with excertion, stridor, wheezing, others Cardiovascular: denies: chest pain, dizzy spells, diaphoresis, Dyspnea on exertion, edema, irregular heart beat, left arm pain, lightheadedness, palpi tations, PND, syncope, others Gastrointestinal: reports: abdominal pain, diarrhea, nausea, vomiting; denies: abdomen distended, blood streaked bowels, constipated, dysphagia, difficulty swallowing, hematemesis, melena, poor appetite, poor fluid intake, rectal bleeding, rectal pain, others Genitourinary: denies: burning, dysuria, flank pain, frequency, hematuria, incontinence, penile discharge, penile sore, pain, testicle pain, testicle swelling, urgency, others Neurological: denies: dizziness, fainting, headache, left sided numbness, left sided weakness, numbness, paresthesia, pre-existing deficit, right sided numbness, right sided weakness, seizure, speech problems, tingling, tremors, weakness, others Musculoskeletal: denies: back pain, gout, joint pain, joint swelling, muscle pain, muscle stiffness, neck pain, others Integumetry: denies: bruises, change in color, change in hair/nails, dryness, laceration, lesions, lumps, rash, wounds, others Allergic/Immunocompromised: denies: Difficulty Healing, Frequent Infections, Hives, Itching, others Hematologic/Lymphatic: denies: anemia, blood clots, easy bleeding, easy bruising, swollen glands, others Endocrine: denies: excessive hunger, excessive sweating, excessive thirst, excessive urination, flushing, intolerance to cold, intolerance to heat, unexplained weight gain, unexplained weight loss, others Psychiatric: denies: anxiety, bipolar disorder, depression, hopeless, panic disorder, schizophrenia, sleepless, suicidal, others All Other Systems: Reviewed and Negative Physical Exam General Appearance: No Apparent Distress HEENT: Other (Pupils symmetric, moist mucous membranes) Neck: Full Range of Motion, Normal Inspection Respiratory: Lungs Clear, No Accessory Muscle Use, No Respiratory Distress, N ormal Breath Sounds Cardiovascular: No Edema, No JVD, Regular Rate/Rhythm Breast Exam: Deferred Gastrointestinal: RLQ, Soft, Tenderness Genitalia: Deferred Pelvic: Deferred Rectal: Deferred Extremities: Normal inspection, Normal range of motion, Non-tender, No pedal edema Neurologic: Alert (Oriented x4), Normal Affect, Normal Mood, Other (Ambulatory without difficulty. No gross focal deficit.) Cerebellar Function: NOT DONE Reflexes: NOT DONE Skin: Dry, Normal Color, Warm Lymphatic: NOT DONE Was a procedure done? Was a procedure done?: No GI differential Dx Differential Diagnosis: Appendicitis, Diverticular disease, Gastroenteritis, Inflammatory BD, Ischemic Bowel, UTI, Urolithiasis, Dehydration, Electrolyte Imbalance, Food Poisoning, Bacterial, Viral, Renal Failure, Stress Ulcer, Kidney Stone, Other (Abscess, neoplasm, among others) X-Ray, Labs, Meds, VS Vital Signs Date Time Temp Pulse Resp B/P (MAP) Pulse Ox O2 Delivery O2 Flow Rate FiO2 05/02/24 16:11 86 17 143/104 05/02/24 16:00 86 17 143/104 (117) 98 05/02/24 13:15 78 18 150/111 05/02/24 12:39 76 18 98 Room Air 05/02/24 12:39 78 18 150/111 (124) 98 05/02/24 11:30 98.3 74 18 140/108 (119) 100 Lab Test 05/02/24 13:40 Range/Units White Blood Count 4.7 4.4-10.8 10^3/uL Red Blood Count 5.01 4.5-5.90 10^6/uL Hemoglobin 14.0 13.5-17.5 g/dL Hematocrit 42.0 41.0-53.0 % Mean Corpuscular Volume 83.8 80.0-100.0 fL Mean Corpuscular Hemoglobin 28.0 28.0-32.0 pg Mean Corpuscular Hemoglobin Concent 33.4 32.0-36.0 g/dL Red Cell Distribution Width 14.9 H 11.8-14.3 % Platelet Count 341 140-450 10^3/uL Mean Platelet Volume 7.9 6.9-10.8 fL Neutrophils (%) (Auto) 79.8 37.0-80.0 % Lymphocytes (%) (Auto) 8.7 L 10.0-50.0 % Monocytes (%) (Auto) 8.0 0.0-12.0 % Eosinophils (%) (Auto) 3.0 0.0-7.0 % Basophils (%) (Auto) 0.5 0.0-2.0 % Neutrophils # (Auto) 3.7 1.6-8.6 10 ^3/uL Lymphocytes # (Auto) 0.4 0.4-5.4 10 ^3/uL Monocytes # (Auto) 0.4 0-1.3 10 ^3/uL Eosinophils # (Auto) 0.1 0-0.8 10 ^3/uL Basophils # (Auto) 0 0-0.2 10 ^3/uL Nucleated Red Blood Cells 0.2 % Sodium Level 139 136-145 mmol/L Potassium Level 4.1 3.5-5.1 mmol/L Chloride Level 107 98-107 mmol/L Carbon Dioxide Level 25 20-31 mmol/L Anion Gap 7 5-15 Blood Urea Nitrogen 13 9-23 mg/dL Creatinine 1.24 0.700-1.30 mg/dL Glomerular Filtration Rate Calc 71 >90 mL/min BUN/Creatinine Ratio 10.5 10.0-20.0 Serum Glucose 93 74-106 mg/dL Lactic Acid Level 1.0 0.4-2.0 mmol/L Calcium Level 9.4 8.7-10.4 mg/dL Total Bilirubin 0.4 0.2-1.0 mg/dL Aspartate Amino Transferase (AST) 44 H 13-40 U/L Alanine Aminotransferase (ALT) 37 7-40 U/L Alkaline Phosphatase 87 46-116 U/L Total Protein 7.2 5.7-8.2 g/dL Albumin 4.3 3.2-4.8 g/dL Current Medications Medications (Trade) Dose Ordered Sig/Bob Route Start Time Stop Time Status Last Admin Sodium Chloride 2,000 ml @ 1,000 mls/hr Q2H ONCE IV 05/02/24 12:30 05/02/24 14:29 DC 05/02/24 13:16 Hydromorphone HCl (Dilaudid Injection) 0.5 mg ONCE ONCE IV 05/02/24 12:30 05/02/24 12:31 DC 05/02/24 13:15 Ondansetron HCl (Zofran) 4 mg ONCE ONCE IV 05/02/24 12:30 05/02/24 12:31 DC 05/02/24 13:14 Famotidine (Pepcid Injection) 20 mg ONCE ONCE IV 05/02/24 12:30 05/02/24 12:31 DC 05/02/24 13:14 Hydromorphone HCl (Dilaudid Injection) 0.5 mg ONCE ONCE IV 05/02/24 16:15 05/02/24 16:16 DC 05/02/24 16:11 [place] [id number] Ph: [phone] DIAGNOSTIC IMAGING Diagnostic Imaging Report : [id number] Signed PATIENT: NORA NEWBY ACCT: [id number] UNIT: [id number] : 1975 LOC: ER ROOM / BED: / AGE / SEX: 48 / M ADM STATUS: REG ER SERVICE 1218 ORDERING PHYSICIAN: ASHLI MONTANA MD PROCEDURE(s): ABPL - CT AB PEL WO CON-NO ORAL OR IV REASON: RLQ pain/mass ORDER NUMBER(s): [id number], ACCESSION NUMBER(s): [id number] Exam: CT CT AB PEL WO CON-NO ORAL OR IV History: RLQ pain/mass Comparison Study: CT abdomen pelvis 02/06/2024 TECHNIQUE: Multidetector CT of the abdomen was performed from lung bases to pubic symphysis. Imaging was performed without IV contrast. Axial, coronal and sagittal multiplanar reformats were obtained from the axial data set by the technologist. Radiation Dose Information: CT Dose: CTDI volume is 5.17 mGy. Dose-length product is 249.16 mGy*cm FINDINGS: Evaluation of solid organs is limited due to lack of intravenous contrast use. Findings: Lung Bases: No acute or significant lung base finding. Normal heart size. No pleural or pericardial effusion. Liver: The liver is normal in size. No focal lesions. Gallbladder and Biliary Tree: Unremarkable Spleen: Unremarkable Pancreas: The pancreas is grossly normal in appearance. Adrenal Glands: Unremarkable Kidneys: Kidneys are grossly normal without calculi or hydronephrosis. Bladder: Grossly unremarkable for degree of distention. Bowel: Small hiatal hernia.. Small bowel and colon are normal in caliber and distribution. There are tiny hyperdense foci near the appendiceal origin, however no appendiceal dilation or periappendiceal inflammatory reaction is appreciated. Ascites: Absent Lymphadenopathy: No mesenteric, retroperitoneal or periportal lymphadenopathy. Abdominal Wall and Mesentery: There is a 2.2 cm region mesenteric fat stranding just inferior to the right kidney. Vasculature: The visualized abdominal aorta is normal in size and caliber. Evaluation of abdominal and pelvic vessels is limited due to lack of intravenous contrast. Pelvic Organs: Unremarkable Musculoskeletal: No aggressive focal bony lesions, acute fractures or dislocation. Moderate to severe narrowing of the L5-S1 disc space with focal degenerative changes at this level. Soft tissues: Unremarkable IMPRESSION: 1. Right lower quadrant 2.2 cm region of mesenteric fat stranding inferior to the right kidney. 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 2. Tiny hyperdense foci at the appendiceal origin, however no CT evidence for acute appendicitis. 3. Small hiatal hernia. 4. Moderate to severe narrowing of the L5-S1 disc space with focal degenerative changes at this level. Radiation optimization: All CT scans at this facility use at least one of these dose optimization techniques: automated exposure control mA and/or kV adjustment per patient size (includes targeted exams where dose is matched to clinical indication) or iterative reconstruction. HS:Y ATED BY: GERRI BOYLE DO DICTATED DATE/TIME: 05/02/241247 SIGNED BY: GERRI BOYLE DO SIGNED DATE/TIME: 05/02/241247 CC: X-Ray, Labs, Meds, VS Comment 48-year-old male with a history of hypertension and seizures presenting with right lower quadrant pain, nausea, vomiting, diarrhea, body aches and chills Vitals remarkable for BP 140/108 Exam remarkable for right lower quadrant tenderness to percussion and palpation CT abdomen and pelvis IMPRESSION: 1. Right lower quadrant 2.2 cm region of mesenteric fat stranding inferior to the right kidney. Findings most suggestive of mesenteric panniculitis. 2. Tiny hyperdense foci at the appendiceal origin, however no CT evidence for acute appendicitis. 3. Small hiatal hernia. 4. Moderate to severe narrowing of the L5-S1 disc space with focal degenerative changes at this level. CBC, CMP and lactic acid level unremarkable for any abnormality of acute significance Patient received the following treatment in the ED: L 0.9 normal saline IV bolus, Dilaudid 0.5 mg IV x2, Zofran 4 mg IV, Pepcid 20 mg IV On re-evaluation, patient stated his pain had transiently improved, however returned. Plan was to admit the patient for IV antibiotics, however the patient signed out against medical advice. I was not advised by the patient's nurse that the patient had signed out until after he had left the hospital. Time of 1ST Reevaluation: 12:00 Reevaluation 1ST: Unchanged Patient Education/Counseling: Diagnosis, Treatment Family Education/Counseling: No Family Present Departure 1 Departure Time of Disposition: 16:48 Impression: Primary Impression: Mesenteric panniculitis Disposition: 07 LEFT AGAINST MEDICAL ADVICE Condition: Fair Discharged With: Self Critical Care Note Critical Care Time?: No Stability Stability form required: No Heart Score Heart Score: Heart Score Response (Comments) Value History N/A 0 EKG N/A 0 Age N/A 0 Risk Factors N/A 0 Troponin N/A 0 Total 0 I personally scribed for ASHLI MONTANA MD ([email or web address]) on 05/02/24 at 13:25. Electronically submitted by Evelyn Rogel ([email or web address]). I personally scribed for ASHLI MONTANA MD ([email or web address]) on 05/02/24 at 14:13. Electronically submitted by Evelyn Rogel [email or web address]). ASHLI MONTANA MD May 02, 2024 13:25
[2024-05-02 14:07] LABS: Basophils # (auto) 0 10 ^3/uL (0-0.2); Basophils % (auto) 0.5 % (0.0-2.0); Eosinophils # (auto) 0.1 10 ^3/uL (0-0.8); Lymphocytes # (auto) 0.4 10 ^3/uL (0.4-5.4); Lymphocytes % (auto) 8.7 % (10.0-50.0); Mean Corpuscular Hgb Conc. 33.4 g/dL (32.0-36.0); Mean Corpuscular Volume 83.8 fL (80.0-100.0); Monocytes # (auto) 0.4 10 ^3/uL (0-1.3); Neutrophils # (auto) 3.7 10 ^3/uL (1.6-8.6); Neutrophils % (auto) 79.8 % (37.0-80.0); Nucleated Red Blood Cells % 0.2 %; Platelet Count (auto) 341 10^3/uL (140-450); Red Blood Cells 5.01 10^6/uL (4.5-5.90); Red Cell Distribution Width 14.9 % (11.8-14.3); White Blood Cell 4.7 10^3/uL (4.4-10.8)
[2024-05-02] MEDS ORDERED: HYDROMORPHONE HCL 1 MG/ML INJ ONE (15:36)
[2024-05-02 15:50] LABS: Alanine Aminotransferase 37 U/L (7-40); Albumin 4.3 g/dL (3.2-4.8); Alkaline Phosphatase 87 U/L (46-116); Anion Gap 7 (5-15); BUN/Creatinine Ratio 10.5 (10.0-20.0); Bilirubin, Total 0.4 mg/dL (0.2-1.0); Blood Urea Nitrogen 13 mg/dL (9-23); Calcium 9.4 mg/dL (8.7-10.4); Carbon Dioxide 25 mmol/L (20-31); Chloride 107 mmol/L (98-107); Glucose 93 mg/dL (74-106); Potassium 4.1 mmol/L (3.5-5.1); Sodium 139 mmol/L (136-145); Total Protein 7.2 g/dL (5.7-8.2)
[2024-05-02 15:58] LABS: Aspartate Aminotransferase 44 U/L (13-40)
[2024-05-02 16:00] VITALS: O2SAT 98
[2024-05-02 16:11] VITALS: BP 143/104; PULSE 86; RESP 17
== END 2024-05-02 16:48 | disposition left against medical advice (07) ==
LOC: EDBD 11:29 → ER 11:32
DX: K65.4 Sclerosing mesenteritis (principal); K44.9 Diaphragmatic hernia without obstruction or gangrene; I10 Essential (primary) hypertension; F17.210 Nicotine dependence, cigarettes, uncomplicated; Z79.899 Other long term (current) drug therapy; Z88.0 Allergy status to penicillin; Z88.5 Allergy status to narcotic agent
CPT/HCPCS: 36415; 74176; 80053; 83605; 85025; 87040; 96361; 96374; 96375; 96376; 99285; J1170; J1171; J2405; J3490; J7030

== ENCOUNTER 2024-12-11 22:08 | Emergency (ER) | payer MEDICAID ==
[~2024-12-11] VITALS: Ht 167.6 cm; Wt 70.3 kg
[2024-12-11 22:21] VITALS: BP 129/91; RESP 20; TEMP 98.6; O2SAT 99
[2024-12-11 22:24] VITALS: PULSE 77
--- NOTE | 2024-12-11 22:38 | ECG ---
[facility] Test Date: 2024-12-11 Test Time: 22:24:59 Pat Name: NORA NEWBY Department: ED Room: Gender: M Geophysical Computer: ADELITA : 1975 Requested By: EMERGENCY EMERGENCY Order Number: [id number] Reading MD: Measurements Intervals [place] Rate: 77 P: 57 SC: 154 QRS: 20 QRSD: 110 T: 67 QT: 399 QTc: 452 Interpretive Statements Sinus rhythm Baseline wander in lead(s) V2,V3,V5 Please click the below link to view image of tracing.
[2024-12-11 23:03] LABS: Hematocrit 38.6 % (41.0-53.0); Hemoglobin 13.1 g/dL (13.5-17.5); Mean Corpuscular Hemoglobin 27.7 pg (28.0-32.0); Mean Corpuscular Volume 81.8 fL (80.0-100.0); Nucleated Red Blood Cells % 0.0 %
[2024-12-11 23:11] LABS: Chloride 104 mmol/L (98-107); Potassium 3.7 mmol/L (3.5-5.1)
[2024-12-11 23:12] LABS: Anion Gap 8 (5-15); Carbon Dioxide 24 mmol/L (20-31)
[2024-12-11 23:13] LABS: Calcium 8.9 mg/dL (8.7-10.4)
[2024-12-11 23:17] LABS: BUN/Creatinine Ratio 10.6 (10.0-20.0); Blood Urea Nitrogen 12 mg/dL (9-23); Glucose 91 mg/dL (74-106)
--- NOTE | 2024-12-11 23:33 | DVH ---
EXAM: XY CHEST XRAY 1 VIEW CLINICAL HISTORY: cp TECHNIQUE: Single AP view of the chest WID: COMPARISON: XY CHEST PORTABLE on DOS: 04/09/24 FINDINGS: Lines and tubes: None Chest: The heart size and pulmonary vasculature is within normal limits. No pleural effusion, pneumothorax, or consolidation. The osseous structures are grossly intact. IMPRESSION: No acute cardiopulmonary abnormality.
[2024-12-11 23:34] LABS: Sodium 136 mmol/L (136-145)
== END 2024-12-12 02:38 | disposition left against medical advice (07) ==
LOC: ER 22:08 → EDBD 22:08 → ER 12-12 02:38
DX: R07.89 Other chest pain (principal); Z53.21 Procedure and treatment not carried out due to patient leaving prior to being seen by health care provider
CPT/HCPCS: 36415; 71045; 80048; 83880; 84484; 85025; 93005